=== PATIENT | female | born 1985 | race Caucasian/White ===

== ENCOUNTER → 2017-12-31 | Day surgery (SDC) | payer OTHER ==
[~2017-12-31] MED LIST: LIDOCAINE 2% 100 MG/5 ML SYRINGE.; PROPOFOL 20 ML IV
[2017-12-31] MEDS: IV RINGERS,LACTATED 1000ML 1,000 ML IV (06:47)
== END | disposition home or self-care (01) ==
LOC: ENDOS 05:38
DX: K21.0 Gastro-esophageal reflux disease with esophagitis (principal); Z88.8 Allergy status to other drugs, medicaments and biological substances; F32.9 Major depressive disorder, single episode, unspecified; Z82.3 Family history of stroke; Z72.0 Tobacco use; Z90.710 Acquired absence of both cervix and uterus; Z98.51 Tubal ligation status; Z90.49 Acquired absence of other specified parts of digestive tract
CPT/HCPCS: 43239; 88305; J2704

== ENCOUNTER 2019-09-05 12:39 | Inpatient (IN) | payer BC ==
[~2019-09-05] VITALS: Ht 162.6 cm; Wt 99.9 kg
[~2019-09-05 12:39] MED LIST changes: +LEVO75TA PO; -LIDOCAINE 2% 100 MG/5 ML SYRINGE.; +MELA3TAB56 PO; +OMEP20TA63 PO; +PHEN37.53 PO; -PROPOFOL 20 ML IV
[2019-09-05] MEDS ORDERED: fentaNYL PF VIAL 100 MCG/2 ML VIAL IVP PRN (13:30)
[2019-09-05] MEDS ORDERED: ONDANSETRON PF 4 MG/2 ML VIAL. IVP PRN (13:30)
[2019-09-05] MEDS: POTASSIUM CL 20MEQ D5-0.45NACL 1,000 ML IV SCH (14:46)
[2019-09-05 15:00] VITALS: BP 110/68
--- NOTE | 2019-09-05 15:01 | PDOC2 ---
GI CONSULT Reason For Consult: obstruction vs enteritis HPI: HPI: 33 y/o female sent from [facility]. On , stood up and felt a pop in epigastrium, had some pain for about 15 minutes. [place] well Wednesday and Wednesday. Then pain recurred (burning, squeezing) in epigastrium toward LUQ on Wednesday and Wednesday - worsening overall, but waxes and wanes in severity. Not sure about radiation - "everything is sore." Associated w/ n/v, but also was able to eat dinner without issue last night. Additionally associated w/ watery diarrhea since Wednesday - multiple times today. No change in pain with eating or stooling. 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 Labs unremarkable except ALT 76, AST 47. On CT: degree of small bowel wall thickening in LUQ (possible enteritis) and also segments of small bowel in left abdomen slightly dilated (favor mild ileus over partial obstruction). Also noted hepatic steatosis, hepatomegaly, left renal cyst, and nonspecific mesenteric nodes (previous haziness and standing has decreased). H/o GERD on omeprazole QD - good control. No dysphagia. No hematemesis, hematochezia, or melena. No weight loss, no fever. No sick contacts. EGD w/ Dr. Stanton in 12/2017 for epigastric pain and heartburn - cannot view procedure report but biopsy results c/w reflux esophagitis. No previous colonoscopy. S/p cholecystectomy in 04/2019 w/ Dr. Armas for biliary dyskinesia. Reports h/o elevated liver enzymes and fatty liver. No pancreas or PUD history. No NSAIDs. Additional h/o appendectomy, hysterectomy, and CAPRICE x 4. Complains of severe pain, asks to drink. PMH: PMH: GERD, hypothyroidism, depression appendectomy, hysterectomy, cholecystectomy (path w/ chronic cholecystitis and focal cholesterolosis), CAPRICE x 4 FH: Family History: No pertinent hx (denies GI cancers) Social History: Smoke: <1 pack per day (vapes) ALCOHOL: none Drugs: None ROS: GEN: Denies fevers, chills, sweats HEENT: Denies blurred vision, sore throat CV: Denies chest pain RESP: Denies shortness of air, cough GI: Per HPI : Denies hematuria, dysuria ENDO: Denies weight changes NEURO: Denies confusion, dizziness MSK: Denies weakness, joint pain/swelling SKIN: Denies jaundice, pruritus Allergies: Coded Allergies: ibuprofen (Verified Allergy, Intermediate, 12/31/17) naproxen (Verified Allergy, Intermediate, 12/31/17) Medications: Please see EMR. Imaging: Imaging: Per HPI. PE: GEN: uncomfortable HEENT: Atraumatic, PERRL LUNGS: CTAB anteriorly HEART: RRR ABD: NABS, soft, tender diffusely - worse in epigastrium to LUQ EXTREMITY: No edema SKIN: No rashes, no jaundice NEURO/PSYCH: A & O 3 A/P: A/P: Epigastric/LUQ pain, n/v, diarrhea Elevated AST and ALT Abnormal CT - SB wall thickening in LUQ, segments of small bowel in left abdomen slightly dilated GERD - EGD 12/2017, on PPI QD Hepatic steatosis CRC screen - average risk S/p cholecystectomy H/o CAPRICE -- Asks for ice chips - okay per GI. IV PPI. Check stool studies. Surgery asked to see as well. NICHOLE KYLE Sep 05, 2019 15:01
[2019-09-05] MEDS: PANTOPRAZOLE IV PUSH 40 MG VIAL. IVP SCH (18:04)
[2019-09-05 19:25] VITALS: BP 108/66
[2019-09-05 23:30] VITALS: BP 114/62
[2019-09-06] MEDS: POTASSIUM CL 20MEQ D5-0.45NACL 1,000 ML IV SCH (03:12)
[2019-09-06 03:35] VITALS: BP 120/69
[2019-09-06 04:45] LABS: BASO % 0 % (0-3); EOS # 0.3 x10^3/uL (0.0-0.7); EOS % 4 % (0-3); HEMATOCRIT 38.7 % (36.0-47.0); LYMPH # 2.4 x10^3/uL (1.0-4.8); LYMPH % 39 % (24-48); MEAN CORPUSCULAR HEMOGLOBIN 29 pg (25-35); MEAN CORPUSCULAR HGB CONC 34 g/dL (31-37); MEAN CORPUSCULAR VOLUME 85 fL (79-100); MONO # 0.4 x10^3/uL (0.0-1.1); MONO % 6 % (0-9); NEUT # 3.1 x10^3/uL (1.8-7.7); NEUT % 51 % (31-73); PLATELET COUNT 216 x10^3/uL (140-400); RED BLOOD COUNT 4.57 x10^6/uL (3.50-5.40); WHITE BLOOD COUNT 6.1 x10^3/uL (4.0-11.0)
[2019-09-06 04:59] LABS: ALBUMIN 3.4 g/dL (3.4-5.0); ALBUMIN/GLOBULIN RATIO 0.9 (1.0-1.7); CALCIUM 8.5 mg/dL (8.5-10.1); CREATININE 0.8 mg/dL (0.6-1.0); GFR 82.1; POTASSIUM 3.8 mmol/L (3.5-5.1); TOTAL BILIRUBIN 0.5 mg/dL (0.2-1.0); TOTAL PROTEIN 7.2 g/dL (6.4-8.2)
[2019-09-06 07:00] VITALS: BP 135/72
[2019-09-06] MEDS: PANTOPRAZOLE IV PUSH 40 MG VIAL. IVP SCH (08:43)
--- NOTE | 2019-09-06 09:06 | PDOC2 ---
CONSULT Date of Consult Date of Consult DATE: 09/06/19 TIME: 09:00 History of Present Illness Reason for Visit: The patient is a 33 year old female who was admitted due to abdominal pain. She first noticed some pain last week when she described a short term "popping" sensation in her upper abdomen. This improved, but then she developed left upper abdominal pain over the weekend with associated nausea, vomiting, and diarrhea. She reported to [facility] yesterday and was transferred to [place]. Since her admission her symptoms have improved substantially. Past Medical History Past Medical History depression, GERD, hypothyroidism, obesity Past Surgical History Past Surgical History appendectomy, partial hysterectomy, oophorectomy, lap anabella, "adhesion surgery" Social History <1 pack per day (vapes) ALCOHOL: none Drugs: None Lives: with Family Current Medications Current Medications Current Medications Potassium Chloride/Dextrose/ Sod Cl 1,000 ml @ 75 mls/hr [id number] IV Last administered on 09/06/19at 03:12; Start 09/05/19 at 13:30 Ondansetron HCl (Zofran) 4 mg PRN Q4HRS PRN IVP NAUSEA/VOMITING; Start 09/05/19 at 13:30 Fentanyl Citrate (Fentanyl 2ml Vial) 50 mcg PRN Q3HRS PRN IVP PAIN Last administered on 09/06/19at 03:16; Start 09/05/19 at 13:30 Pantoprazole Sodium (PROTONIX VIAL for IV PUSH) 40 mg DAILYAC IVP Last administered on 09/06/19at 08:43; Start 09/05/19 at 16:00 Active Scripts Active Reported Prilosec Otc (Omeprazole Magnesium) 20 Mg Tablet.dr 1 Tab PO DAILY Phentermine Hcl 37.5 Mg Capsule 37.5 Mg PO DAILY Melatonin 3 Mg Tablet 1 Tab PO QHS Synthroid (Levothyroxine Sodium) 75 Mcg Tablet 1 Tab PO DAILY Allergies Allergies: Coded Allergies: ibuprofen (Verified Allergy, Intermediate, 12/31/17) naproxen (Verified Allergy, Intermediate, 12/31/17) ROS General: No: Chills, Night Sweats, Fatigue, Malaise, Appetite, Other PSYCHOLOGICAL ROS: No: Anxiety, Behavioral Disorder, Concentration difficultie, Decreased libido, Depression, Disorientation, Hallucinations, Hostility, Irritablity, Memory difficulties, Mood Swings, Obsessive thoughts, Physical abuse, Sexual abuse, Sleep disturbances, Suicidal ideation, Other Eyes: No Blurry vision, No Decreased vision, No Double vision, No Dry eyes, No Excessive tearing, No Eye Pain, No Itchy Eyes, No Loss of vision, No Photophobia, No Scotomata, No Uses contacts, No Uses glasses, No Other HEENT: No: Heacaches, Visual Changes, Hearing change, Nasal congestion, Nasal discharge, Oral lesions, Sinus pain, Sore Throat, Epistaxis, Sneezing, Snoring, Tinnitus, Vertigo, Vocal changes, Other ALLERGY AND IMMUNOLOGY: No: Hives, Insect Bite Sensitivity, Itchy/Watery Eyes, Nasal Congestion, Post Nasal Drip, Seasonal Allergies, Other Hematological and Lymphatic: No: Bleeding Problems, Blood Clots, Blood Transfusions, Brusing, Night Sweats, Pallor, Swollen Lymph Nodes, Other ENDOCRINE: No: Breast Changes, Galactorrhea, Hair Pattern Changes, Hot Flashes, Malaise/lethargy, Mood Swings, Palpitations, Polydipsia/polyuria, Skin Changes, Temperature Intolerance, Unexpected Weight Changes, Other Cardiovascular: No Chest Pain, No Palpitations, No Orthopnea, No Paroxysmal Noc. Dyspnea, No Edema, No Lt Headedness, No Other Gastrointestinal: Yes Nausea, Yes Vomiting, Yes Abdominal Pain, Yes Diarrhea Genitourinary: No Dysuria, No Frequency, No Incontinence, No Hematuria, No Retention, No Discharge, No Urgency, No Pain, No Flank Pain, No Other, No , No , No , No , No , No , No Musculoskeletal: No Gait Disturbance, No Joint Pain, No Joint Stiffness, No Joint Swelling, No Muscle Pain, No Muscular Weakness, No Pain In:, No Swelling In:, No Other Neurological: No Behavorial Changes, No Bowel/Bladder ControlChng, No Confusion, No Dizziness, No Gait Disturbance, No Headaches, No Impaired Coord/balance, No Memory Loss, No Numbness/Tingling, No Seizures, No Speech Problems, No Tremors, No Visual Changes, No Weakness, No Other Skin: No Dry Skin, No Eczema, No Hair Changes, No Lumps, No Mole Changes, No Mottling, No Nail Changes, No Pruritus, No Rash, No Skin Lesion Changes, No Other, No Acne Physical Exam General: Alert, Oriented X3, Cooperative HEENT: Atraumatic Lungs: Clear to auscultation Abdomen: Soft (mildly tender in upper abdomen, no guarding), No masses Extremities: No clubbing, No cyanosis Skin: No rashes Neuro: Normal speech, Strength at 5/5 X4 ext Psych/Mental Status: Mental status NL Vitals VITALS Vital Signs Date Time Temp Pulse Resp B/P (MAP) Pulse Ox O2 Delivery O2 Flow Rate FiO2 09/06/19 03:45 Room Air 09/06/19 03:35 97.6 52 16 120/69 (86) 94 97.6 Labs Labs Laboratory Tests Test 09/06/19 04:15 White Blood Count 6.1 x10^3/uL (4.0-11.0) Red Blood Count 4.57 x10^6/uL (3.50-5.40) Hemoglobin 13.0 g/dL (12.0-15.5) Hematocrit 38.7 % (36.0-47.0) Mean Corpuscular Volume 85 fL (79-100) Mean Corpuscular Hemoglobin 29 pg (25-35) Mean Corpuscular Hemoglobin Concent 34 g/dL (31-37) Red Cell Distribution Width 13.0 % (11.5-14.5) Platelet Count 216 x10^3/uL (140-400) Neutrophils (%) (Auto) 51 % (31-73) Lymphocytes (%) (Auto) 39 % (24-48) Monocytes (%) (Auto) 6 % (0-9) Eosinophils (%) (Auto) 4 % (0-3) Basophils (%) (Auto) 0 % (0-3) Neutrophils # (Auto) 3.1 x10^3/uL (1.8-7.7) Lymphocytes # (Auto) 2.4 x10^3/uL (1.0-4.8) Monocytes # (Auto) 0.4 x10^3/uL (0.0-1.1) Eosinophils # (Auto) 0.3 x10^3/uL (0.0-0.7) Basophils # (Auto) 0.0 x10^3/uL (0.0-0.2) Sodium Level 140 mmol/L (136-145) Potassium Level 3.8 mmol/L (3.5-5.1) Chloride Level 104 mmol/L (98-107) Carbon Dioxide Level 25 mmol/L (21-32) Anion Gap 11 (6-14) Blood Urea Nitrogen 11 mg/dL (7-20) Creatinine 0.8 mg/dL (0.6-1.0) Estimated GFR (Cockcroft-Gault) 82.1 BUN/Creatinine Ratio 14 (6-20) Glucose Level 121 mg/dL (70-99) Calcium Level 8.5 mg/dL (8.5-10.1) Total Bilirubin 0.5 mg/dL (0.2-1.0) Aspartate Amino Transf (AST/SGOT) 38 U/L (15-37) Alanine Aminotransferase (ALT/SGPT) 57 U/L (14-59) Alkaline Phosphatase 68 U/L (46-116) Total Protein 7.2 g/dL (6.4-8.2) Albumin 3.4 g/dL (3.4-5.0) Albumin/Globulin Ratio 0.9 (1.0-1.7) Laboratory Tests Test 09/06/19 04:15 White Blood Count 6.1 x10^3/uL (4.0-11.0) Red Blood Count 4.57 x10^6/uL (3.50-5.40) Hemoglobin 13.0 g/dL (12.0-15.5) Hematocrit 38.7 % (36.0-47.0) Mean Corpuscular Volume 85 fL (79-100) Mean Corpuscular Hemoglobin 29 pg (25-35) Mean Corpuscular Hemoglobin Concent 34 g/dL (31-37) Red Cell Distribution Width 13.0 % (11.5-14.5) Platelet Count 216 x10^3/uL (140-400) Neutrophils (%) (Auto) 51 % (31-73) Lymphocytes (%) (Auto) 39 % (24-48) Monocytes (%) (Auto) 6 % (0-9) Eosinophils (%) (Auto) 4 % (0-3) Basophils (%) (Auto) 0 % (0-3) Neutrophils # (Auto) 3.1 x10^3/uL (1.8-7.7) Lymphocytes # (Auto) 2.4 x10^3/uL (1.0-4.8) Monocytes # (Auto) 0.4 x10^3/uL (0.0-1.1) Eosinophils # (Auto) 0.3 x10^3/uL (0.0-0.7) Basophils # (Auto) 0.0 x10^3/uL (0.0-0.2) Sodium Level 140 mmol/L (136-145) Potassium Level 3.8 mmol/L (3.5-5.1) Chloride Level 104 mmol/L (98-107) Carbon Dioxide Level 25 mmol/L (21-32) Anion Gap 11 (6-14) Blood Urea Nitrogen 11 mg/dL (7-20) Creatinine 0.8 mg/dL (0.6-1.0) Estimated GFR (Cockcroft-Gault) 82.1 BUN/Creatinine Ratio 14 (6-20) Glucose Level 121 mg/dL (70-99) Calcium Level 8.5 mg/dL (8.5-10.1) Total Bilirubin 0.5 mg/dL (0.2-1.0) Aspartate Amino Transf (AST/SGOT) 38 U/L (15-37) Alanine Aminotransferase (ALT/SGPT) 57 U/L (14-59) Alkaline Phosphatase 68 U/L (46-116) Total Protein 7.2 g/dL (6.4-8.2) Albumin 3.4 g/dL (3.4-5.0) Albumin/Globulin Ratio 0.9 (1.0-1.7) Images Images CT yesterday examined; some focal small bowel thickening, consistent with enteritis. Assessment/Plan Assessment/Plan Abdominal pain, suspect enteritis. No surgical indications. Pt is improved and will start clears. GI following, we will sign off LEE DEWEY MD Sep 06, 2019 09:06
[2019-09-06] MEDS ORDERED: LEVOTHYROXINE 75 MCG TABLET PO SCH (10:30)
[2019-09-06 11:00] VITALS: BP 130/95
--- NOTE | 2019-09-06 11:22 | HP ---
ADMIT DATE: 09/05/2019 HISTORY OF PRESENT ILLNESS: The patient is a 33-year-old female patient, who presented to the Emergency Room of [facility] with a complaint of midepigastric pain that has been going on for 5 days prior to arrival to the Emergency Room. The patient stated that the pain was intermittent initially, but is continuous for the past 2 days. She describes it as sharp, but since then, the pain has radiated to her back. On occasions, the pain is worse with food on palpation, but associated with nausea, vomiting as well as diarrhea. She stated that she has multiple episodes of nausea and vomiting since Wednesday as well as diarrhea. All these symptoms have subsided earlier this morning; however, denied any hematemesis, melena or hematochezia. Denied any hematuria, dysuria or frequency. Denied any fever or chills. Denied any dizziness or lightheadedness. She was evaluated in the Emergency Room. Her lab work was unremarkable except for mildly elevated liver enzymes, probably due to nonalcoholic steatohepatitis. Her urinalysis was unremarkable. She did have a CT scan of the abdomen and pelvis, which showed that there is a degree of small bowel wall thickening in the left upper quadrant of the abdomen as may be seen with enteritis, also segment of small bowel in the left abdomen, slightly dilated, although mild small bowel ileus is favored over the partial obstruction. Her previously seen mesenteric nodes are smaller. Degree of stranding and hazy density of the mesentery also has decreased. There is again diffuse hepatic steatosis and hepatomegaly. There is a small inferior left renal cyst. Given that she has multiple surgeries before, a decision was made to transfer her to [facility]. She was kept n.p.o., on IV fluid and to consult the surgical team as well as the micro lab analyst. PAST MEDICAL HISTORY: Significant for hypothyroidism, gastroesophageal reflux disease, depression. PAST SURGICAL HISTORY: Significant for cholecystectomy, appendectomy, total abdominal hysterectomy, and bilateral salpingo-oophorectomy. She did have exploratory laparotomy and removal of left ovary and lysis of adhesions. ALLERGIES: SHE IS ALLERGIC TO NAPROXEN AND IBUPROFEN. MEDICATIONS: She is currently on following medications: She is on levothyroxine 75 mcg once a day, omeprazole 40 mg once a day. She is also on Wellbutrin and multivitamin. FAMILY HISTORY: She has one brother and one sister, both younger. Her sister was diagnosed before with Lyme disease. Her father is still alive at the age of 55 and healthy. Mother is alive at age of 50, has multiple medical problems. SOCIAL HISTORY: She is , has a son and daughter. She waves, does not drink alcohol or use recreational drugs. 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 REVIEW OF SYSTEMS: As per history of present illness. PHYSICAL EXAMINATION: GENERAL: On arrival to the Emergency Room, she looked well and was clearly in no apparent respiratory distress. No pallor, jaundice, cyanosis or thyromegaly. No jugular venous distention. No limb edema. VITAL SIGNS: Her heart rate was 85, blood pressure was 147/101, temperature was 98.6, respiratory rate was 14 and oxygen saturation was 100% on room air. HEAD, EYES, EARS, NOSE AND THROAT: Showed normocephalic, atraumatic. NECK: Supple. HEART: Showed normal first and second heart sounds. No gallop or murmur. CHEST: Clear to auscultation. No crepitation or rhonchi. ABDOMEN: Slightly distended with tenderness mostly in the epigastric area. No guarding or rigidity. No organomegaly. All hernial orifice intact. Bowel sounds normal. NEUROLOGIC: She is awake, alert and oriented x 3 with no obvious motor or sensory deficit. LABORATORY DATA: Showed that her white cell count was 6400, hemoglobin 14.4, hematocrit 42, MCV 84 and platelet count 254,000. Her chemistry showed a serum sodium 139, potassium 4.3, chloride 105, bicarbonate 28, anion gap of 6, BUN 13, creatinine 0.8, estimated GFR was 82 mL per minute. Her glucose was 100, calcium was 8.8. Total bilirubin and alkaline phosphatase is normal. AST and ALT are slightly elevated. Her total protein was 8.1, albumin was 3.9, lipase 147. Her urinalysis was essentially unremarkable. IMAGING DATA: The CT scan of the abdomen and pelvis showed that there is a degree of small bowel wall thickening in the left upper quadrant of the abdomen, may be seen with enteritis, also segment of small bowel in the left abdomen, slightly dilated, although mild small bowel ileus is favored over partial obstruction. Her previously seen mesenteric nodes are smaller, degree of stranding and hazy density of the mesentery also decreased. There is again diffuse hepatic steatosis. There is hepatomegaly. PLAN: Given the findings and about the fact that she has multiple surgeries before and that she required exploratory laparotomy for adhesiolysis, a decision was made to transfer her to [facility] to consult the surgical team as well as the micro lab analyst. We will keep the patient n.p.o., continue with IV fluid, IV antiemetic, and pain medications. DEBO SHAFER MD DR: KOBI/reece JOB#: [id number] / [id number]
--- NOTE | 2019-09-06 12:04 | PDOC ---
Subjective: Subjective: Feels better. Some abd soreness w/ movement. Tolerating clears w/o n/v. Stooled yesterday - now denies diarrhea. Objective: Objective: D/w nurse earlier today - asking about advancing diet and possible DC - ok w/ GI. Vital Signs: Vital Signs Date Time Temp Pulse Resp B/P (MAP) Pulse Ox O2 Delivery O2 Flow Rate FiO2 09/06/19 08:00 Room Air 09/06/19 07:00 97.8 56 17 135/72 (93) 98 97.8 Labs: Laboratory Tests Test 09/06/19 04:15 White Blood Count 6.1 x10^3/uL Red Blood Count 4.57 x10^6/uL Hemoglobin 13.0 g/dL Hematocrit 38.7 % Mean Corpuscular Volume 85 fL Mean Corpuscular Hemoglobin 29 pg Mean Corpuscular Hemoglobin Concent 34 g/dL Red Cell Distribution Width 13.0 % Platelet Count 216 x10^3/uL Neutrophils (%) (Auto) 51 % Lymphocytes (%) (Auto) 39 % Monocytes (%) (Auto) 6 % Eosinophils (%) (Auto) 4 % Basophils (%) (Auto) 0 % Neutrophils # (Auto) 3.1 x10^3/uL Lymphocytes # (Auto) 2.4 x10^3/uL Monocytes # (Auto) 0.4 x10^3/uL Eosinophils # (Auto) 0.3 x10^3/uL Basophils # (Auto) 0.0 x10^3/uL Sodium Level 140 mmol/L Potassium Level 3.8 mmol/L Chloride Level 104 mmol/L Carbon Dioxide Level 25 mmol/L Anion Gap 11 Blood Urea Nitrogen 11 mg/dL Creatinine 0.8 mg/dL Estimated GFR (Cockcroft-Gault) 82.1 BUN/Creatinine Ratio 14 Glucose Level 121 mg/dL Calcium Level 8.5 mg/dL Total Bilirubin 0.5 mg/dL Aspartate Amino Transf (AST/SGOT) 38 U/L Alanine Aminotransferase (ALT/SGPT) 57 U/L Alkaline Phosphatase 68 U/L Total Protein 7.2 g/dL Albumin 3.4 g/dL Albumin/Globulin Ratio 0.9 PE: GEN: NAD LUNGS: CTAB HEART: RRR ABD: soft, BS+, less LUQ discomfort NEURO/PSYCH: A & O 3 A/P: Epigastric/LUQ pain, n/v, diarrhea - resolving, suspect infectious enteritis Elevated AST and ALT - resolving, h/o hepatic steatosis -- ADAT, DC per primary if tolerates. Continue PPI for h/o GERD - change from IV to PO. Follow-up w/ GI PRN. Hemodynamically unstable?: No Is patient in severe pain?: No Is NPO status required?: No NICHOLE KYLE Sep 06, 2019 12:04
[2019-09-06] MEDS ORDERED: PANTOPRAZOLE 40 MG TABLET.DR. PO SCH (12:30)
--- NOTE | 2019-09-06 12:50 | NUR ---
SW following. Discussed with RN, pt is from home. RN advised no SW needs at time. SW will continue to follow, should any discharge needs arise.
--- NOTE | 2019-09-06 13:05 | NUR ---
Discharge Note: AMERICA DOHERTY LEICESTER Discharge instructions and discharge home medications reviewed with Patient and a copy given. All questions have been answered and understanding verbalized. The following instructions and handouts were given: DIET, ACTIVITY, MEDICATION LIST AND FOLLOW UP INSTRUCTIONS PROVIDED TO PATIENT. Discontinued lines and drains: Peripheral IV DISCONTINUED AND CATHETER intact. Patient discharged to Home or Self Care with Spouse via Ambulated
[2019-09-06] MEDS ORDERED: NON FORMULARY ITEM (Melatonin 1 TAB) PO SCH (21:00)
[2019-09-07] MEDS ORDERED: NON FORMULARY ITEM (Omeprazole Magnesium (Prilosec Otc) 1 TAB) PO SCH (09:00)
== END 2019-09-06 13:05 | disposition home or self-care (01) | DRG 392 ==
LOC: 4 NORTH 12:39
PROVIDERS: ADMIT Internal Medicine; ATTEND Internal Medicine
DX: A09 Infectious gastroenteritis and colitis, unspecified (principal); E03.9 Hypothyroidism, unspecified; F17.210 Nicotine dependence, cigarettes, uncomplicated; F32.9 Major depressive disorder, single episode, unspecified; K21.0 Gastro-esophageal reflux disease with esophagitis; K81.1 Chronic cholecystitis; N28.1 Cyst of kidney, acquired; Z90.49 Acquired absence of other specified parts of digestive tract; Z90.711 Acquired absence of uterus with remaining cervical stump; E66.9 Obesity, unspecified
CPT/HCPCS: 36415; 80053; 85025; 87045; 87493; C9113; J3010; G0378

== ENCOUNTER 2021-02-04 10:11 | Observation (INO) | payer BC ==
[~2021-02-04] VITALS: Ht 162.6 cm; Wt 100.8 kg
[~2021-02-04 10:11] MED LIST changes: -LEVO75TA PO; +LEVO75TA90 PO; +MELA3TAB4 PO; -MELA3TAB56 PO
[2021-02-04 11:21] LABS: BASO # 0.1 x10^3/uL (0.0-0.2); BASO % 1 % (0-3); EOS # 0.2 x10^3/uL (0.0-0.7); EOS % 2 % (0-3); HEMATOCRIT 42.3 % (36.0-47.0); HEMOGLOBIN 14.4 g/dL (12.0-15.5); LYMPH # 2.6 x10^3/uL (1.0-4.8); LYMPH % 34 % (24-48); MEAN CORPUSCULAR HEMOGLOBIN 28 pg (25-35); MEAN CORPUSCULAR HGB CONC 34 g/dL (31-37); MEAN CORPUSCULAR VOLUME 83 fL (79-100); MONO # 0.3 x10^3/uL (0.0-1.1); MONO % 5 % (0-9); NEUT # 4.5 x10^3/uL (1.8-7.7); NEUT % 58 % (31-73); PLATELET COUNT 269 x10^3/uL (140-400); RED BLOOD COUNT 5.12 x10^6/uL (3.50-5.40); RED CELL DISTRIBUTION WIDTH 13.3 % (11.5-14.5); WHITE BLOOD COUNT 7.7 x10^3/uL (4.0-11.0)
[2021-02-04 11:29] LABS: PROTHROMBIN TIME PATIENT 12.4 SEC (11.7-14.0)
--- NOTE | 2021-02-04 11:30 | RAD ---
PQRS Compliance Statement: One or more of the following individualized dose reduction techniques were utilized for this examinat ion: 1. Automated exposure control 2. Adjustment of the mA and/or kV according to patient size 3. Use of iterative reconstruction technique CT HEAD WITHOUT CONTRAST History: Reason: ams / Spl. Instructions: / History: Comparison: None. Procedure: Axial images are obtained of the head from the skull base through the vertex without IV co ntrast. Findings: The ventricles and sulci are normal for the patient's age. No mass-effect, midline shift, hemorrhage, extra-axial fluid collection, or obvious acute infarction is identified. Basilar cisterns are patent. Bone windows demonstrate no acute calvarial abnormality. The visualized paranasal sinuses are clear. Mastoid air cells are well aerated. IMPRESSION: No acute intracranial abnormality. Electronically signed by: Chet Hale MD (02/04/2021 11:28 AM) [id number]
--- NOTE | 2021-02-04 11:33 | RAD ---
EXAM: Chest, single view. HISTORY: Altered mental status. COMPARISON: None. FINDINGS: A frontal view of the chest is obtained. There is no infiltrate, pleural effusion or pneumo thorax. The heart is normal in size for portable technique. IMPRESSION: No acute pulmonary finding. Electronically signed by: Dayami Mott MD (02/04/2021 11:31 AM) [id number]
[2021-02-04 11:40] LABS: CALCIUM 9.2 mg/dL (8.5-10.1); CREATININE 0.8 mg/dL (0.6-1.0); GFR 81.2; POTASSIUM 4.3 mmol/L (3.5-5.1)
[2021-02-04 11:46] LABS: ALBUMIN 4.3 g/dL (3.4-5.0); ALBUMIN/GLOBULIN RATIO 1.2 (1.0-1.7); TOTAL BILIRUBIN 0.3 mg/dL (0.2-1.0); TOTAL PROTEIN 7.9 g/dL (6.4-8.2)
--- NOTE | 2021-02-04 12:06 | PHYS DOC ---
Past Medical History Past Medical History: Hypothyroid Past Surgical History: No Surgical History Smoking Status: Current Every Day Smoker Alcohol Use: None General Adult EDM: Chief Complaint: OTHER COMPLAINTS HPI: HPI: Patient is a 35 year old female who presents with at 7:00 yesterday morning and then progressed to just generalized weakness and numbness and tingling all over her body. She states she does feel like she is in a fog. She states the headache is gone today. She states the headache she had yesterday was not the worst headache she is ever had. Patient denies chest pain, shortness of air, fever, urinary symptoms, vision change, syncope, fall, focal weakness, abdominal pain, nausea, vomiting, diarrhea. Patient states that her mother had a stroke in her 40s. Patient is a smoker and she has hypothyroidism. She states she takes no other medications. Denies any pain. Review of Systems: Review of Systems: Constitutional: Denies fever or chills. [] Eyes: Denies change in visual acuity. [] HENT: Denies nasal congestion or sore throat. [] Respiratory: Denies cough or shortness of breath. [] Cardiovascular: Denies chest pain or edema. [] GI: Denies abdominal pain, nausea, vomiting, bloody stools or diarrhea. [] : Denies dysuria. [] Musculoskeletal: Denies back pain or joint pain. + Generalized weakness [] Integument: Denies rash. [] Neurologic: + Yesterday headache, + numbness and tingling all over, focal weakness or sensory changes. + Feeling foggy [] Endocrine: Denies polyuria or polydipsia. [] Lymphatic: Denies swollen glands. [] Psychiatric: Denies depression or anxiety. [] Heart Score: C/O Chest Pain: No Risk Factors: Risk Factors: DM, Current or recent (<one month) smoker, HTN, HLP, family history of CAD, obesity. Risk Scores: Score 0 - 3: 2.5% MACE over next 6 weeks - Discharge Home Score 4 - 6: 20.3% MACE over next 6 weeks - Admit for Clinical Observation Score 7 - 10: 72.7% MACE over next 6 weeks - Early Invasive Strategies Allergies: Allergies: Allergies Coded Allergies Type Severity Reaction Last Updated Verified ibuprofen Allergy Intermediate 12/31/17 Yes naproxen Allergy Intermediate 12/31/17 Yes Physical Exam: PE: Constitutional: Well developed, well nourished, no acute distress, non-toxic appearance. [] HENT: Normocephalic, atraumatic, bilateral external ears normal, oropharynx moist, no oral exudates, nose normal. [] Eyes: PERRLA, EOMI, conjunctiva normal, no discharge. [] Neck: Normal range of motion, no tenderness, supple, no stridor. [] Cardiovascular:Heart rate regular rhythm, no murmur [] Lungs & Thorax: Bilateral breath sounds clear to auscultation [] Abdomen: Bowel sounds normal, soft, no tenderness, no masses, no pulsatile masses. [] Skin: Warm, dry, no erythema, no rash. [] Back: No tenderness, no CVA tenderness. [] Extremities: No tenderness, no cyanosis, no clubbing, ROM intact, no edema. Weakness in bilateral lower extremities but equal [] Neurologic: Alert and oriented X 3, normal motor function, normal sensory function, no focal deficits noted. [] Psychologic: Affect normal, judgement normal, mood normal. [] Current Patient Data: Labs: Laboratory Tests Test 02/04/21 11:02 White Blood Count 7.7 x10^3/uL (4.0-11.0) Red Blood Count 5.12 x10^6/uL (3.50-5.40) Hemoglobin 14.4 g/dL (12.0-15.5) Hematocrit 42.3 % (36.0-47.0) Mean Corpuscular Volume 83 fL (79-100) Mean Corpuscular Hemoglobin 28 pg (25-35) Mean Corpuscular Hemoglobin Concent 34 g/dL (31-37) Red Cell Distribution Width 13.3 % (11.5-14.5) Platelet Count 269 x10^3/uL (140-400) Neutrophils (%) (Auto) 58 % (31-73) Lymphocytes (%) (Auto) 34 % (24-48) Monocytes (%) (Auto) 5 % (0-9) Eosinophils (%) (Auto) 2 % (0-3) Basophils (%) (Auto) 1 % (0-3) Neutrophils # (Auto) 4.5 x10^3/uL (1.8-7.7) Lymphocytes # (Auto) 2.6 x10^3/uL (1.0-4.8) Monocytes # (Auto) 0.3 x10^3/uL (0.0-1.1) Eosinophils # (Auto) 0.2 x10^3/uL (0.0-0.7) Basophils # (Auto) 0.1 x10^3/uL (0.0-0.2) Prothrombin Time 12.4 SEC (11.7-14.0) Prothrombin Time INR 1.0 (0.8-1.1) Sodium Level 140 mmol/L (136-145) Potassium Level 4.3 mmol/L (3.5-5.1) Chloride Level 104 mmol/L (98-107) Carbon Dioxide Level 28 mmol/L (21-32) Anion Gap 8 (6-14) Blood Urea Nitrogen 14 mg/dL (7-20) Creatinine 0.8 mg/dL (0.6-1.0) Estimated GFR (Cockcroft-Gault) 81.2 BUN/Creatinine Ratio 18 (6-20) Glucose Level 101 mg/dL (70-99) H Calcium Level 9.2 mg/dL (8.5-10.1) Total Bilirubin 0.3 mg/dL (0.2-1.0) Aspartate Amino Transferase (AST) 24 U/L (15-37) Alanine Aminotransferase (ALT) 51 U/L (14-59) Alkaline Phosphatase 85 U/L (46-116) Troponin I Quantitative < 0.017 ng/mL (0.000-0.055) IQ-Rej-G-Type Natriuretic Peptide 34 pg/mL (0-124) Total Protein 7.9 g/dL (6.4-8.2) Albumin 4.3 g/dL (3.4-5.0) Albumin/Globulin Ratio 1.2 (1.0-1.7) Laboratory Tests 02/04/21 11:02 Laboratory Tests 02/04/21 11:02 Vital Signs: Vital Signs Date Time Temp Pulse Resp B/P (MAP) Pulse Ox O2 Delivery O2 Flow Rate FiO2 02/04/21 10:34 98.4 67 16 157/101 (119) 97 Room Air 98.4 EKG: EK and read by Dr. Garza is sinus rhythm and no STEMI Radiology/Procedures: Radiology/Procedures: [] Impression: [facility] [address] [place] [address] IMAGING REPORT Signed PATIENT: AMERICA DOHERTY ACCOUNT: [id number] : 1985 LOCATION: ER AGE: 35 SEX: F EXAM STATUS: REG ER ORD. PHYSICIAN: DIPIKA ALMAGUER APRN REASON: ams PROCEDURE: CT HEAD WO CONTRAST PQRS Compliance Statement: One or more of the following individualized dose reduction techniques were utilized for this examination: 1. Automated exposure control 2. Adjustment of the mA and/or kV according to patient size 3. Use of iterative reconstruction technique CT HEAD WITHOUT CONTRAST History: Reason: ams / Spl. Instructions: / History: Comparison: None. Procedure: Axial images are obtained of the head from the skull base through the vertex without IV contrast. Findings: The ventricles and sulci are normal for the patient's age. No mass-effect, midline shift, hemorrhage, extra-axial fluid collection, or obvious acute infarction is identified. Basilar cisterns are patent. Bone windows demonstrate no acute calvarial abnormality. The visualized paranasal sinuses are clear. Mastoid air cells are well aerated. IMPRESSION: No acute intracranial abnormality. Electronically signed by: Chet Hale MD (02/04/2021 11:28 AM) [id number] DICTATED and SIGNED BY: CHET HALE MD DATE: 02/04/21 [id number] [facility] [address] [place] [address] IMAGING REPORT Signed PATIENT: AMERICA DOHERTY ACCOUNT: [id number] : 1985 LOCATION: ER AGE: 35 SEX: F EXAM STATUS: REG ER ORD. PHYSICIAN: DIPIKA ALMAGUER APRN REASON: ams PROCEDURE: PORTABLE CHEST 1V EXAM: Chest, single view. HISTORY: Altered mental status. COMPARISON: None. FINDINGS: A frontal view of the chest is obtained. There is no infiltrate, pleural effusion or pneumothorax. The heart is normal in size for portable technique. IMPRESSION: No acute pulmonary finding. Electronically signed by: Dayami To MD (02/04/2021 11:31 AM) [id number] DICTATED and SIGNED BY: DAYAMI TO MD DATE: 02/04/21 [id number] 0 Course & Med Decision Making: Course & Med Decision Making Pertinent Labs and Imaging studies reviewed. (See chart for details) See HPI. Alert and oriented x4. Ambulatory with a steady gait. No focal weakness. Lungs are clear to all station all lobes. She is appropriate and answers all my questions appropriately. Speaks in full clear sentences. Her sensations are all intact. Patient is unable to do that heel to silveira due to weakness in her legs. She will lift her legs bilaterally slightly off the bed but states they just feel heavy. Skin pink warm and dry. No peripheral edema. PERRLA. No loss of vision. Xeayhq-topc-eectif intact. Examination is unremarkable. The concern is for Guillain-Escobar due to getting the Covid vaccine about 8 days ago and the progressive weakness. Patient is admitted to Dr. Soriano., [] Ashleigh Disclaimer: Ashleigh Disclaimer: This electronic medical record was generated, in whole or in part, using a voice recognition dictation system. NIHSS Stroke Scale NIH Stroke Scale: NIH Stroke Scale Response (Comments) Value Level of Consciousness: 0 Alert/Responsive 0 LOC Questions: 0 Answers both correctly 0 LOC Commands: 0 Performs both tasks 0 Best Gaze: 0 Normal 0 Visual: 0 No visual loss 0 Facial Palsy: 0 Normal, symmetrical 0 Motor - Left Arm 0 No drift 0 Motor - Right Arm 0 No drift 0 Motor - Left Leg 1 Drift but can hold 1 Motor: Right Leg 1 Drift but can hold 1 Limb Ataxia: 2 Two limbs (bilateral lower extremity) 2 Sensory: 0 No loss 0 Best Language: 0 Normal 0 Dysathria: 0 Normal 0 Extinction and Inattention: 0 Normal 0 Total 4 Departure Departure Impression: Primary Impression: Neurological symptoms Disposition: ADMITTED INPATIENT Admitting Physician: FELICE Condition: STABLE Referrals: CANDICE MITCHELL MD (PCP) DIPIKA ALMAGUER APRN February 04, 2021 12:06
[2021-02-04 13:40] LABS: BILIRUBIN,URINE NEGATIVE (NEG); CLARITY,URINE CLEAR; COLOR,URINE YELLOW; NITRITE,URINE NEGATIVE (NEG); PROTEIN,URINE NEGATIVE (NEG-TRACE); UROBILINOGEN,URINE 0.2 mg/dL (0.2 mg/dL)
[2021-02-04 13:49] LABS: AMPHETAMINE/METHAMPHETAMINE NEG (NEG); BARBITURATES NEG (NEG); BENZODIAZEPINES NEG (NEG); CANNABINOIDS NEG (NEG); COCAINE NEG (NEG); METHADONE NEG (NEG); OPIATES NEG (NEG); PHENCYCLIDINE NEG (NEG)
[2021-02-04 13:52] LABS: BACTERIA,URINE MANY /HPF (0-FEW)
[2021-02-04 13:53] LABS: RBC,URINE OCC /HPF (0-2)
--- NOTE | 2021-02-04 15:49 | EKG ---
[facility] [address] [place] [address] Test Date: 2021-02-04 Test Time: 12:09:18 Pat Name: AMERICA DOHERYT Department: Room: Gender: F Sex [employer]: : 1985 Requested By: DIPIKA ALMAGUER Order Number: [id number] Reading MD: Measurements Intervals Gilman Rate: 54 P: 23 NM: 150 QRS: 45 QRSD: 88 T: 60 QT: 448 QTc: 427 Interpretive Statements SINUS RHYTHM NORMAL ECG RI6.02 No previous ECG available for comparison
[2021-02-04 16:51] VITALS: BP 143/79
[2021-02-04] MEDS ORDERED: BUPR150T21 PO (17:07)
[2021-02-04] MEDS ORDERED: OMEP40CA45 PO (17:07)
[2021-02-04] MEDS ORDERED: ESCI20TA8 PO (17:07)
[2021-02-04] MEDS ORDERED: DIPH25CA58 PO (17:07)
--- NOTE | 2021-02-04 17:43 | HP ---
ADMIT DATE: 02/04/2021 CHIEF COMPLAINT: Lower extremity weakness and tingling in her hands. HISTORY OF PRESENT ILLNESS: The patient is a pleasant, middle-aged female, who presented with the above chief complaints. Basically over the past couple of days, she has been developing progressive weakness, especially starting in her feet. She states her feet feel like they are really heavy. She also has some generalized weakness and some numbness and tingling throughout her body and in her hands. She feels like she is in a fog. She had a headache today as well. She did receive the COVID-19 vaccine about 12 days ago. I discussed the case with ER physician who were concerned she could be developing Guillain-Maitland. We are going to admit the patient and consult Dr. Seaman of the neurology service. PAST MEDICAL HISTORY: Hypothyroidism and tobacco abuse. ALLERGIES: IBUPROFEN AND NAPROXEN. FAMILY HISTORY: Diabetes. SOCIAL HISTORY: She does not drink or take drugs. She smokes. MEDICATIONS: Reviewed. Please refer to the MRAD. REVIEW OF SYSTEMS: GENERAL: No history of weight change, weakness or fevers. SKIN: No bruising, hair changes or rashes. EYES: No blurred, double or loss of vision. NOSE AND THROAT: No history of nosebleeds, hoarseness or sore throat. HEART: No history of palpitations, chest pain or shortness of breath on exertion. LUNGS: Denies cough, hemoptysis, wheezing or shortness of breath. GASTROINTESTINAL: Denies changes in appetite, nausea, vomiting, diarrhea or constipation. GENITOURINARY: No history of frequency, urgency, hesitancy or nocturia. NEUROLOGIC: Denies history of numbness, tingling, tremor or weakness. PSYCHIATRIC: No history of panic, anxiety or depression. ENDOCRINE: No history of heat or cold intolerance, polyuria or polydipsia. EXTREMITIES: Denies muscle weakness, joint pain, pain on walking or stiffness. PHYSICAL EXAMINATION: VITALS: Within normal limits and are stable. GENERAL: She appears a little anxious and somewhat slow. No apparent distress. Alert and oriented. HEENT: Normal cephalic atraumatic, external auditory canals are patent. EYES: Extraocular muscles are intact, pupils are equally round and reactive to light and accommodation. MUSCULOSKELETAL: Well developed, well nourished, good range of motion. ENDOCRINE: No thyromegaly was palpated. LYMPHATICS: No cervical chain or axillary nodes were noted. HEMATOPOIETIC: No bruising. NECK: Supple, no JVD, no thyromegaly was noted. LUNGS: Clear to auscultation in all lung joe without rhonchi or wheezing. HEART: RRR, S1, S2 present. Peripheral pulses intact, no obvious murmurs were noted. ABDOMEN: Soft, nontender. Positive bowel sounds no organomegaly, normal bowel sounds. EXTREMITIES: Without any cyanosis, clubbing, or edema. Pedal pulses intact, Homans sign is negative. NEUROLOGIC: Normal speech, normal tone. A and O x3, moves all extremities, no obvious focal deficits. She complains of weakness, numb hands, difficulty moving her legs and fogginess. She has decreased plantar flexion and decreased interior specialist strength. PSYCHIATRIC: Normal affect, normal mood. Stable. SKIN: No ulcerations or rashes, good skin turgor, no jaundice. VASCULAR: Good capillary refill, neurovascular bundle appears to be intact. LABORATORY DATA: Hematology is normal. Electrolytes are normal. INR is 1. Urinalysis negative. Drug screen negative. Chest x-ray negative. CT of the head negative. 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 The patient has been admitted. We will consult Neurology. Fall precautions, cardiac diet. Home medications. Deep venous thrombosis prophylaxis. Full code. PT, OT. PROGNOSIS: Guarded. ADITI/B[facility]O/[facility] DR: Helen TID: [id number]
[2021-02-04 19:00] VITALS: BP 138/90
[2021-02-04 22:32] VITALS: BP 156/83
[2021-02-05 02:51] VITALS: BP 132/81
[2021-02-05 07:00] VITALS: BP 139/86
[2021-02-05] MEDS ORDERED: IOHEXOL 350 MG/ML 100 ML VIAL. IV ONE (08:45)
[2021-02-05] MEDS ORDERED: CONTRAST GIVEN. MC PRN (08:45)
--- NOTE | 2021-02-05 09:03 | PDOC2 ---
NEUROLOGY CONSULT Date of Service DOS: DATE: 02/05/21 TIME: 08:56 Reason for Consult Reason for Consult: Increasing weakness Referring Physician Referring Physician: Dr. Soriano Source Source: Chart review, Patient History of Present Illness History of Present Illness The patient is a 35 year old female who noticed severe headache on 02/03. She felt confused and numb all over. Symptoms were worse yesterday morning and she went to the emergency department. She was found to be weak in the legs and having trouble walking. The diagnosis of Guillain-Escobar was raised. Patient is feeling much better this morning. She does have a history of migraine headaches with photo phonophobia and nausea, but this was the worst one she has had. There is no history of stroke, seizure, or head injury. There is no urinary or bowel symptoms. She denies diplopia, dysphagia, or dysarthria. She still feels off balance when she walks. 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 [employer], rare alcohol, no street drugs, uses e-cigarettes Current Medications Current Medications Current Medications Iohexol (Omnipaque 350 Mg/ml) 75 ml 1X ONCE IV ; Start 02/05/21 at 08:45; Stop 02/05/21 at 08:46; Status DC Info (CONTRAST GIVEN -- Rx MONITORING) 1 each PRN DAILY PRN MC SEE COMMENTS; Start 02/05/21 at 08:45; Stop 02/07/21 at 08:44 Active Scripts Active Reported Benadryl (Diphenhydramine Hcl) 25 Mg Capsule 50 Mg PO PRN QHS PRN Bupropion Xl (Bupropion Hcl) 150 Mg Tab.er.24h 1 Tab PO DAILY Omeprazole 40 Mg Capsule.dr 1 Cap PO DAILY Escitalopram Oxalate 20 Mg Tablet 1 Tab PO DAILY Benadryl (Diphenhydramine Hcl) 25 Mg Capsule 50 Mg PO PRN QHS PRN Bupropion Xl (Bupropion Hcl) 150 Mg Tab.er.24h 1 Tab PO DAILY Omeprazole 40 Mg Capsule.dr 1 Cap PO DAILY Escitalopram Oxalate 20 Mg Tablet 1 Tab PO DAILY Melatonin 3 Mg Tablet 1 Tab PO QHS Synthroid (Levothyroxine Sodium) 75 Mcg Tablet 1 Tab PO DAILY Allergies Allergies: Coded Allergies: ibuprofen (Verified Allergy, Intermediate, 12/31/17) naproxen (Verified Allergy, Intermediate, 12/31/17) ROS Review of System Negative for fever, chills, weight loss, shortness of breath, chest pain, indigestion, hematochezia, melena, and dysuria. Full 14-point review of systems is negative. Physical Exam Physical Examination General: Well-developed, well-nourished white female in no acute distress HEENT: Normocephalic andatraumatic. Temporal arteriespulsatile and nontender. Neck: Supple without bruit, no meningismus Musculoskeletal: Stability:see neurologic. Gait exam:see neurologic. Tone:see neurologic.Strength:see neurologic. Neurological: Mental Status:intact, orientation, memory, attention span/concentration, language, fund of knowledge normal. Cranial Nerves:Pupils equal and reactive to light, extraocular movements areintact, visual joe are full to confrontation. Facial sensation is normal. There is no facial asymmetry. Vestibulo-ocular reflex is intact. Palate elevates and tongue protrudes in midline. All other cranial related problems are negative except as mentioned before.Reflexes:2+ and symmetric with flexor plantar responses. Motor:5/5 strength with normal tone and bulk. Coordination:Finger-nose finger and airp-xm-wmxj testing are normal. Rapid alternating movements and fine finger movements are intact. Gait:A little ataxic. Sensory:Normal pinprick, vibration, light touch, proprioception. Vitals VITALS Vital Signs Date Time Temp Pulse Resp B/P (MAP) Pulse Ox O2 Delivery O2 Flow Rate FiO2 02/05/21 08:00 Room Air 02/05/21 07:00 97.9 63 20 139/86 (103) 97 97.9 Labs Labs Laboratory Tests Test 02/04/21 11:02 02/04/21 13:25 02/04/21 13:30 White Blood Count 7.7 x10^3/uL (4.0-11.0) Red Blood Count 5.12 x10^6/uL (3.50-5.40) Hemoglobin 14.4 g/dL (12.0-15.5) Hematocrit 42.3 % (36.0-47.0) Mean Corpuscular Volume 83 fL (79-100) Mean Corpuscular Hemoglobin 28 pg (25-35) Mean Corpuscular Hemoglobin Concent 34 g/dL (31-37) Red Cell Distribution Width 13.3 % (11.5-14.5) Platelet Count 269 x10^3/uL (140-400) Neutrophils (%) (Auto) 58 % (31-73) Lymphocytes (%) (Auto) 34 % (24-48) Monocytes (%) (Auto) 5 % (0-9) Eosinophils (%) (Auto) 2 % (0-3) Basophils (%) (Auto) 1 % (0-3) Neutrophils # (Auto) 4.5 x10^3/uL (1.8-7.7) Lymphocytes # (Auto) 2.6 x10^3/uL (1.0-4.8) Monocytes # (Auto) 0.3 x10^3/uL (0.0-1.1) Eosinophils # (Auto) 0.2 x10^3/uL (0.0-0.7) Basophils # (Auto) 0.1 x10^3/uL (0.0-0.2) Prothrombin Time 12.4 SEC (11.7-14.0) Prothromb Time International Ratio 1.0 (0.8-1.1) Sodium Level 140 mmol/L (136-145) Potassium Level 4.3 mmol/L (3.5-5.1) Chloride Level 104 mmol/L (98-107) Carbon Dioxide Level 28 mmol/L (21-32) Anion Gap 8 (6-14) Blood Urea Nitrogen 14 mg/dL (7-20) Creatinine 0.8 mg/dL (0.6-1.0) Estimated GFR (Cockcroft-Gault) 81.2 BUN/Creatinine Ratio 18 (6-20) Glucose Level 101 mg/dL (70-99) Calcium Level 9.2 mg/dL (8.5-10.1) Magnesium Level 2.0 mg/dL (1.8-2.4) Total Bilirubin 0.3 mg/dL (0.2-1.0) Aspartate Amino Transf (AST/SGOT) 24 U/L (15-37) Alanine Aminotransferase (ALT/SGPT) 51 U/L (14-59) Alkaline Phosphatase 85 U/L (46-116) Troponin I Quantitative < 0.017 ng/mL (0.000-0.055) SI-Nhy-N-Type Natriuretic Peptide 34 pg/mL (0-124) Total Protein 7.9 g/dL (6.4-8.2) Albumin 4.3 g/dL (3.4-5.0) Albumin/Globulin Ratio 1.2 (1.0-1.7) Urine Collection Type Unknown Urine Color Yellow Urine Clarity Clear Urine pH 5.0 (<5.0-8.0) Urine Specific Butler 1.025 (1.000-1.030) Urine Protein Negative mg/dL (NEG-TRACE) Urine Glucose (UA) Negative mg/dL (NEG) Urine Ketones (Stick) Negative mg/dL (NEG) Urine Blood Negative (NEG) Urine Nitrite Negative (NEG) Urine Bilirubin Negative (NEG) Urine Urobilinogen Dipstick 0.2 mg/dL (0.2 mg/dL) Urine Leukocyte Esterase Negative (NEG) Urine RBC Occ /HPF (0-2) Urine WBC 1-4 /HPF (0-4) Urine Squamous Epithelial Cells Mod /LPF Urine Bacteria Many /HPF (0-FEW) Urine Mucus Marked /LPF Urine Opiates Screen Neg (NEG) Urine Methadone Screen Neg (NEG) Urine Barbiturates Neg (NEG) Urine Phencyclidine Screen Neg (NEG) Urine Amphetamine/Methamphetamine Neg (NEG) Urine Benzodiazepines Screen Neg (NEG) Urine Cocaine Screen Neg (NEG) Urine Cannabinoids Screen Neg (NEG) Urine Ethyl Alcohol Neg (NEG) Bedside Urine HCG, Qualitative Hcg negative (Negative) Laboratory Tests Test 02/04/21 11:02 02/04/21 13:25 02/04/21 13:30 White Blood Count 7.7 x10^3/uL (4.0-11.0) Red Blood Count 5.12 x10^6/uL (3.50-5.40) Hemoglobin 14.4 g/dL (12.0-15.5) Hematocrit 42.3 % (36.0-47.0) Mean Corpuscular Volume 83 fL (79-100) Mean Corpuscular Hemoglobin 28 pg (25-35) Mean Corpuscular Hemoglobin Concent 34 g/dL (31-37) Red Cell Distribution Width 13.3 % (11.5-14.5) Platelet Count 269 x10^3/uL (140-400) Neutrophils (%) (Auto) 58 % (31-73) Lymphocytes (%) (Auto) 34 % (24-48) Monocytes (%) (Auto) 5 % (0-9) Eosinophils (%) (Auto) 2 % (0-3) Basophils (%) (Auto) 1 % (0-3) Neutrophils # (Auto) 4.5 x10^3/uL (1.8-7.7) Lymphocytes # (Auto) 2.6 x10^3/uL (1.0-4.8) Monocytes # (Auto) 0.3 x10^3/uL (0.0-1.1) Eosinophils # (Auto) 0.2 x10^3/uL (0.0-0.7) Basophils # (Auto) 0.1 x10^3/uL (0.0-0.2) Prothrombin Time 12.4 SEC (11.7-14.0) Prothromb Time International Ratio 1.0 (0.8-1.1) Sodium Level 140 mmol/L (136-145) Potassium Level 4.3 mmol/L (3.5-5.1) Chloride Level 104 mmol/L (98-107) Carbon Dioxide Level 28 mmol/L (21-32) Anion Gap 8 (6-14) Blood Urea Nitrogen 14 mg/dL (7-20) Creatinine 0.8 mg/dL (0.6-1.0) Estimated GFR (Cockcroft-Gault) 81.2 BUN/Creatinine Ratio 18 (6-20) Glucose Level 101 mg/dL (70-99) Calcium Level 9.2 mg/dL (8.5-10.1) Magnesium Level 2.0 mg/dL (1.8-2.4) Total Bilirubin 0.3 mg/dL (0.2-1.0) Aspartate Amino Transf (AST/SGOT) 24 U/L (15-37) Alanine Aminotransferase (ALT/SGPT) 51 U/L (14-59) Alkaline Phosphatase 85 U/L (46-116) Troponin I Quantitative < 0.017 ng/mL (0.000-0.055) QZ-Bam-V-Type Natriuretic Peptide 34 pg/mL (0-124) Total Protein 7.9 g/dL (6.4-8.2) Albumin 4.3 g/dL (3.4-5.0) Albumin/Globulin Ratio 1.2 (1.0-1.7) Urine Collection Type Unknown Urine Color Yellow Urine Clarity Clear Urine pH 5.0 (<5.0-8.0) Urine Specific Butler 1.025 (1.000-1.030) Urine Protein Negative mg/dL (NEG-TRACE) Urine Glucose (UA) Negative mg/dL (NEG) Urine Ketones (Stick) Negative mg/dL (NEG) Urine Blood Negative (NEG) Urine Nitrite Negative (NEG) Urine Bilirubin Negative (NEG) Urine Urobilinogen Dipstick 0.2 mg/dL (0.2 mg/dL) Urine Leukocyte Esterase Negative (NEG) Urine RBC Occ /HPF (0-2) Urine WBC 1-4 /HPF (0-4) Urine Squamous Epithelial Cells Mod /LPF Urine Bacteria Many /HPF (0-FEW) Urine Mucus Marked /LPF Urine Opiates Screen Neg (NEG) Urine Methadone Screen Neg (NEG) Urine Barbiturates Neg (NEG) Urine Phencyclidine Screen Neg (NEG) Urine Amphetamine/Methamphetamine Neg (NEG) Urine Benzodiazepines Screen Neg (NEG) Urine Cocaine Screen Neg (NEG) Urine Cannabinoids Screen Neg (NEG) Urine Ethyl Alcohol Neg (NEG) Bedside Urine HCG, Qualitative Hcg negative (Negative) Images Images CT HEAD WITHOUT CONTRAST History: Reason: ams / Spl. Instructions: / History: Comparison: None. Procedure: Axial images are obtained of the head from the skull base through the vertex without IV contrast. Findings: The ventricles and sulci are normal for the patient's age. No mass-effect, midline shift, hemorrhage, extra-axial fluid collection, or o bvious acute infarction is identified. Basilar cisterns are patent. Bone windows demonstrate no acute calvarial abnormality. The visualized paranasal sinuses are clear. Mastoid air cells are well aerated. IMPRESSION: No acute intracranial abnormality. Assessment/Plan Assessment/Plan Impression: The patient started off with a severe headache in the setting of migraine history, then progressed to have several nonlocalizing neurological symptoms including cognitive changes, dizziness, numbness, and weakness. Exam today is positive only for some ataxia. In particular, she has totally normal reflexes, strength, and sensation, which argues against Guillain-Escobar syndrome. Most likely she has migraine with neurological symptoms, complicated migraine. This was the worst headache of her life, we need to rule out aneurysmal hemorrhage, that is unlikely. Recommendations: MRI of the brain CT angiogram Rehabilitation modalities I plan to send her home on a daily aspirin Consider migraine prophylactic medication if symptoms keep recurring frequently Consider sumatriptan, although this is somewhat problematic with the focal neurological symptoms. She does not have any headache now. Aim for discharge later today or tomorrow. Thank you for letting me help with the patient's care. JAE ARANA MD February 05, 2021 09:03
--- NOTE | 2021-02-05 10:47 | NUR ---
SS following for discharge planning. SS reviewed pt chart and discussed with pt RN. Pt is from home with spouse and is currently on room air. Neurology consulted. CT and Brain MRI ordered. PT/OT ordered. SS will continue to follow for discharge planning.
[2021-02-05 11:00] VITALS: BP 147/76
--- NOTE | 2021-02-05 11:22 | DISCH ---
DISCHARGE INSTRUCTIONS Condition on Discharge Condition on Discharge: Stable Activity After Discharge Activity Instructions for Disc: Avoid exertion Bathing Instructions: Shower-keep dressing dry, No Tub Bath until see Lifting Instructions after Dis: No heavy lifting Driving Instructions after Dis: Do not drive today Diet after Discharge Diet after Discharge: Regular Follow-Up Follow up with: PCP within 2 weeks of discharge Follow Up With: Neurology as needed Treatment/Equipment after DC Adaptive Equipment Issued: None RACHEL HALL MD February 05, 2021 11:22
--- NOTE | 2021-02-05 11:50 | RAD ---
EXAM: Brain MRI without contrast. HISTORY: Headache. TECHNIQUE: Multiplanar, multisequence magnetic resonance imaging of the brain was performed without c ontrast. COMPARISON: CT dated 02/04/2021. FINDINGS: There is no restricted diffusion to suggest acute or subacute infarction. There is no susce ptibility effect to suggest hemorrhage. There is no mass effect or midline shift. There is no hydroce phalus. There is a single tiny focus of T2 such FLAIR hyperintensity within the posterior left fronta l white matter near the vertex. The orbits are unremarkable. The paranasal sinuses mastoid air cells are unremarkable. There are normal flow voids within the cerebral vessels. There are slightly low-lyi ng cerebellar tonsils. This is not within limits for a Chiari I malformation. IMPRESSION: 1. No acute intracranial finding. 2. Single focus of signal change within the posterior left frontal white matter. This is nonspecific and may be related to the history of headaches. The differential also includes a focus of signal mart ge due to chronic small vessel disease as well as chronic demyelination. Electronically signed by: Dayami Mott MD (02/05/2021 11:47 AM) [id number]
--- NOTE | 2021-02-05 12:37 | RAD ---
EXAM: CT angiogram of the head and neck with intravenous contrast. HISTORY: Severe headache. Concern for aneurysm. TECHNIQUE: Computed tomographic images the head and neck were obtained following the administration o f intravenous contrast. 3-dimensional images were obtained. *One or more of the following individualized dose reduction techniques were utilized for this examina tion: 1. Automated exposure control. 2. Adjustment of the mA and/or kV according to patient size. 3. Use of iterative reconstruction technique. COMPARISON: Noncontrast head CT and brain MRI obtained on the same date. FINDINGS: The aortic arch is normal in caliber. There is a common origin of the right innominate and left common carotid arteries, a normal arch branching variant. The arch great vessels are widely hammond nt. The carotid bifurcations are widely patent. The vertebral arteries are codominant and widely hammond nt. The internal carotid arteries are widely patent. There is a patent anterior communicating artery and there are patent bilateral posterior communicating arteries. The anterior, middle and posterior c erebral arteries are widely patent. No hemodynamically significant stenosis or aneurysm is seen. Ther e is no suspicious enhancing lesion. There is no mass effect or midline shift. There is no hydrocepha milli. The orbits are unremarkable. There is a tiny left maxillary sinus mucous retention cyst. The mas toid air cells are clear. There is no suspicious osseous lesion. The airways widely patent. There is no pneumothorax. IMPRESSION: 1. No acute intracranial finding. MRI is more sensitive for acute infarction. 2. No evidence of hemodynamically significant stenosis or aneurysm involving the neck arteries or cer vical arteries. PQRS Compliance Statement - Stenosis calculations for CT, MR and conventional angiography are based u jaimee measurement of the distal ICA diameter in accordance with the NASCET methodology. Stenosis calcu lations for carotid ultrasound studies are derived from validated velocity criteria which are known t o correlate with the NASCET methodology. Electronically signed by: Dayami Mott MD (02/05/2021 12:35 PM) [id number]
--- NOTE | 2021-02-05 14:54 | NUR ---
PATIENT DISCHARGED HOME VIA OWN VEHICLE. MEDS AND FOLLOW UP REVIEWED. IV REMOVED, CATH INTACT. PT STABLE UPON DC.
--- NOTE | 2021-02-07 20:33 | PDOC3 ---
[facility]-Discharge Summary Date of Admission: Date of Admission: February 04, 2021 Date of Discharge: Date of Discharge: February 05, 2021 Discharge Diagnosis: Discharge Diagnosis: migraine with neurological symptoms, complicated migraine. Consults: Consults: Neuro Recommendations: MRI of the brain CT angiogram Rehabilitation modalities I plan to send her home on a daily aspirin Consider migraine prophylactic medication if symptoms keep recurring frequently Consider sumatriptan, although this is somewhat problematic with the focal neurological symptoms. She does not have any headache now. Aim for discharge later today or tomorrow. Hospital Course: Hospital Course: he patient is a pleasant, middle-aged female, who presented with the above chief complaints. Basically over the past couple of days, she has been developing progressive weakness, especially starting in her feet. She states her feet feel like they are really heavy. She also has some generalized weakness and some numbness and tingling throughout her body and in her hands. She feels like she is in a fog. She had a headache today as well. She did receive the COVID-19 vaccine about 12 days ago. I discussed the case with ER physician who were concerned she could be developing Guillain-Manderson. We are going to admit the patient and consult Dr. Seaman of the neurology service. By day of discharge, pt was clinically stable and ready for discharge. MRI brain was negative. Rest of hospital course was uneventful Disposition: Disposition/Orders: D/C to Home Activity: Activity: Resume previous activity Diet: Diet: Cardiac Medications: Home Meds Reported Medications Diphenhydramine Hcl (BENADRYL) 25 Mg Capsule, 50 MG PO PRN QHS PRN for INSOMNIA, CAP 02/04/21 Bupropion Hcl (BUPROPION XL) 150 Mg Tab.er.24h, 1 TAB PO DAILY for mood 02/04/21 Omeprazole (OMEPRAZOLE) 40 Mg Capsule.dr, 1 CAP PO DAILY for gerd 02/04/21 Escitalopram Oxalate (Escitalopram Oxalate) 20 Mg Tablet, 1 TAB PO DAILY for mood 02/04/21 Melatonin (MELATONIN) 3 Mg Tablet, 1 TAB PO QHS, #30 TAB 2 Refills 12/31/17 Levothyroxine Sodium (SYNTHROID) 75 Mcg Tablet, 1 TAB PO DAILY, #30 TAB 5 Refills 12/31/17 Discontinued Reported Medications Diphenhydramine Hcl (BENADRYL) 25 Mg Capsule, 50 MG PO PRN QHS PRN for INSOMNIA, CAP 02/04/21 Bupropion Hcl (BUPROPION XL) 150 Mg Tab.er.24h, 1 TAB PO DAILY for mood 02/04/21 Omeprazole (OMEPRAZOLE) 40 Mg Capsule.dr, 1 CAP PO DAILY for gerd 02/04/21 Escitalopram Oxalate (Escitalopram Oxalate) 20 Mg Tablet, 1 TAB PO DAILY for mood 02/04/21 Scheduled Bupropion Hcl (Bupropion Xl), 1 TAB PO DAILY, (Reported) Escitalopram Oxalate (Escitalopram Oxalate), 1 TAB PO DAILY, (Reported) Levothyroxine Sodium (Synthroid), 1 TAB PO DAILY, (Reported) Melatonin (Melatonin), 1 TAB PO QHS, (Reported) Omeprazole (Omeprazole), 1 CAP PO DAILY, (Reported) Scheduled PRN Diphenhydramine Hcl (Benadryl), 50 MG PO PRN QHS PRN for INSOMNIA, (Reported) Discontinued Medications Bupropion Hcl (Bupropion Xl), 1 TAB PO DAILY, (Reported) Diphenhydramine Hcl (Benadryl), 50 MG PO PRN QHS PRN for INSOMNIA, (Reported) Escitalopram Oxalate (Escitalopram Oxalate), 1 TAB PO DAILY, (Reported) Omeprazole (Omeprazole), 1 CAP PO DAILY, (Reported) Total Time: Total Time: Total time spent was 34 minutes in preparing scripts, discharge planning with SW and RN, and preparing this discharge summary. Patient seen and examined on day of discharge. Justicifation of Admission Dx: Justifications for Admission: Justification of Admission Dx: Yes Stroke - Ischemic: Stroke-Ischemic RACHEL HALL MD February 07, 2021 20:33
== END 2021-02-05 14:56 | disposition home or self-care (01) ==
LOC: ER 10:11 → 2 SOUTH 14:36
PROVIDERS: ADMIT Internal Medicine; ATTEND Internal Medicine
DX: G43.109 Migraine with aura, not intractable, without status migrainosus (principal); R41.82 Altered mental status, unspecified; M62.81 Muscle weakness (generalized); E03.9 Hypothyroidism, unspecified; F17.200 Nicotine dependence, unspecified, uncomplicated; F41.9 Anxiety disorder, unspecified; F32.9 Major depressive disorder, single episode, unspecified; Z87.442 Personal history of urinary calculi; Z90.710 Acquired absence of both cervix and uterus
CPT/HCPCS: 36415; 70450; 70496; 70498; 70551; 71045; 80053; 80307; 81001; 81025; 83735; 83880; 84484; 85025; 85610; 87086; 93005; 97110; 97161; 99285; G0378; G0379